=== PATIENT | female | born 1970 | race African-American/Black ===

== ENCOUNTER 2024-02-15 07:01 | Day surgery (SDC) | payer MEDICARE ==
[2024-02-14 14:13] VITALS: BMI 33.8
[~2024-02-15 07:01] MED LIST: EPINEPHrine 0.3 MG in Ophthalmic Irrigation Solution 500 ML IRR SCH
[2024-02-15] MEDS ORDERED: Midazolam HCl 2 mg/2 ml Vial ONE (09:05)
[2024-02-15] MEDS ORDERED: fentaNYL 50 mcg/mL 1 mL Vial ONE ×2 (09:05→09:28)
[2024-02-15] MEDS ORDERED: PROPOFOL 20 ML ONE (09:05)
[2024-02-15] MEDS ORDERED: Lidocaine 1% PF 5 ML VIAL ONE (09:18)
[2024-02-15] MEDS ORDERED: Lidocaine 4% PF 5 ML AMP ONE (09:18)
[2024-02-15] MEDS ORDERED: Bupivacaine 0.75% 10 ML VIAL ONE (09:18)
[2024-02-15] MEDS ORDERED: Maxitrol 0.1% Opth Oint 3.5 GM TUBE ONE (09:18)
[2024-02-15] MEDS ORDERED: Triamcinolone 40 MG/ML VIAL ONE (09:18)
[2024-02-15] MEDS ORDERED: CEFAZOLIN 1 GM VIAL ONE (09:18)
== END 2024-02-15 10:30 | disposition home or self-care (01) ==
LOC: SDC 07:01
PROVIDERS: ATTEND Ophthalmology Retina Specialist
PROC: 089430Z Drainage of Right Vitreous with Drainage Device, Percutaneous Approach (ICD-10-PCS; principal; 2024-02-15)
DX: H43.11 Vitreous hemorrhage, right eye (principal)
CPT/HCPCS: 67040; 82962; J3010; 36416; J0171; J0690; J2250; J2704; J3301; J3490